=== PATIENT | female | born 1940 | race Two or more races ===

== ENCOUNTER 2021-04-14 21:41 | Emergency (ER) | payer OTHER, MEDICAID ==
[~2021-04-14] VITALS: Ht 167.6 cm; Wt 82.0 kg
[2021-04-14 23:58] LABS: CHLORIDE 113 mEq/L (98-107)
[2021-04-15] LABS: BASOPHILS % 0.9 % (0.0-2.0); EOSINOPHILS % 2.5 % (0.0-5.0); HEMATOCRIT. 33.4 % (36.0-48.0); HEMOGLOBIN. 10.9 g/dL (12.0-16.0); LYMPHOCYTES % 24.5 % (20.0-50.0); MEAN CORPUSCULAR HEMOGLOBIN 29.6 pg (28.0-32.0); MEAN CORPUSCULAR VOLUME 90.7 fL (81.0-99.0); MEAN PLATELET VOLUME 8.5 fl (7.4-10.4); MONOCYTES % 6.7 % (2.0-8.0); NEUTROPHILS % 65.4 % (40.0-76.0); PLATELET 262 x1000/uL (130-400); RED BLOOD CELL COUNT 3.68 mill/uL (4.2-5.4)
[2021-04-15] MEDS ORDERED: FUROSEMIDE 100MG/10ML VIAL IV SCH (00:08)
[2021-04-15] MEDS ORDERED: INSULIN REGULAR (HUMULIN R) 300UNITS/3ML VIAL IV SCH (00:15)
[2021-04-15] MEDS ORDERED: CALCIUM CHLORIDE 1GM/10ML SYR IV SCH (00:15)
[2021-04-15] MEDS ORDERED: ALBUTEROL (0.083%) 2.5MG/3ML NEB HHN SCH (00:15)
[2021-04-15] MEDS ORDERED: CEFTRIAXONE 1 G PREMIX 50 ML IV SCH (00:15)
[2021-04-15] MEDS ORDERED: SODIUM BICARBONATE 8.4% 1 MEQ/ML 50ML SYR IV SCH (00:15)
[2021-04-15] MEDS ORDERED: DEXTROSE 50% WATER 50ML SYRINGE IV SCH (00:15)
[2021-04-15] MEDS ORDERED: SODIUM CHLORIDE 0.9% 1,000 ML IV ONE (00:45)
[2021-04-15] MEDS ORDERED: ONDANSETRON HCL 4MG/2ML INJ IV ONE (00:45)
[2021-04-15 01:34] LABS: CLARITY URINE CLEAR (CLEAR); COLOR URINE YELLOW (YELLOW); KETONES URINE NEGATIVE (NEGATIVE); LEUKOCYTE ESTERASE URINE TRACE (NEGATIVE); NITRITE URINE NEGATIVE (NEGATIVE); OCCULT BLOOD URINE TRACE (NEGATIVE); PROTEIN URINE 3+ (NEGATIVE); SPECIFIC GRAVITY URINE 1.012 (1.005-1.030); UROBILINOGEN URINE 0.2 E.U./dL (0.2-1.0)
[2021-04-15 04:09] VITALS: BP 160/73
[2021-04-15] MEDS ORDERED: ONDANSETRON HCL 4MG/2ML INJ IV SCH (04:45)
== END 2021-04-15 04:54 | disposition short-term general hospital (02) ==
LOC: ER 21:41
DX: E87.5 Hyperkalemia (principal); R53.1 Weakness; E11.9 Type 2 diabetes mellitus without complications; I10 Essential (primary) hypertension; Z86.73 Personal history of transient ischemic attack (TIA), and cerebral infarction without residual deficits; Z20.822 Contact with and (suspected) exposure to COVID-19
CPT/HCPCS: 36415; 71045; 80053; 81003; 82962; 83605; 83690; 84145; 84443; 84484; 85025; 87040; 87077; 87086; 87186; 87426; 93005; 94640; 96365; 96375; 99291; J0696; J1815; J1940; J2405; J3490; J7030